=== PATIENT | male | born 1990 | race Two or more races ===

== ENCOUNTER 2019-03-29 17:23 | Emergency (ER) | payer OTHER ==
[~2019-03-29] VITALS: Ht 165.1 cm; Wt 108.0 kg
[2019-03-29 17:39] VITALS: BP 126/71
--- NOTE | 2019-03-29 17:43 | NUR ---
pt to bed 6 with steady gait
--- NOTE | 2019-03-29 18:03 | NUR ---
BIB GIRLFRIEND c/o atypical cp 10/23 x this am with cough x yesterday. drinks socially, denies drug abuse. PATIENT POSITIONED FOR COMFORT; HOB ELEVATED; BEDRAILS UP X1; BED DOWN. ER MD MADE AWARE OF PT STATUS.
[2019-03-29] MEDS ORDERED: KETOROLAC 30 MG/ML VIAL IM ONE (18:25)
--- NOTE | 2019-03-29 19:10 | NUR ---
Pt report given to PRANAY TAYLOR. Transfer of care at this time.
[2019-03-29 19:21] VITALS: BP 126/71
--- NOTE | 2019-03-29 19:21 | NUR ---
PT DISCHARGED WITH PAPERWORK. RX RYAN BARNES. EDUCATED PT REGARDING MEDICATIONS AND S/E. EDUCATED PT REGARDING D/C DIAGNOSIS AND INSTRUCTIONS. PT VERBALIZED UNDERSTANDING OF TEACHING. TOLD PT TO FOLLOW UP WITH PCP AND WHEN TO RETURN TO ED. PT AT STABLE CONDITION. ABLE TO AMBULATE WITH STEADY GAIT. ALL QUESTIONS ANSWERED.
== END 2019-03-29 19:21 | disposition home or self-care (01) ==
LOC: MED 17:23
DX: S46.812A Strain of other muscles, fascia and tendons at shoulder and upper arm level, left arm, initial encounter (principal); S29.011A Strain of muscle and tendon of front wall of thorax, initial encounter; X58.XXXA Exposure to other specified factors, initial encounter; Y92.89 Other specified places as the place of occurrence of the external cause; Y93.89 Activity, other specified; Y99.8 Other external cause status
CPT/HCPCS: 71045; 73030; 93005; 96372; 99283; J1885; Q0092

== ENCOUNTER 2020-08-24 18:21 | Emergency (ER) | payer OTHER ==
[~2020-08-24] VITALS: Ht 165.1 cm; Wt 108.0 kg
[2020-08-24 18:28] VITALS: BP 144/88
--- NOTE | 2020-08-24 18:54 | NUR ---
29/M PRESENTS TO ED WITH C/O 10/10 SHARP BODY PAIN SINCE SUNDAY. PATIENT STATES HE WAS RESTING WHEN THE PAIN BEGAN. PATIENT WAS AT WORK TODAY AND STATED THE PAIN PROGRESSIVELY GOT WORSE, DENIES TAKING MEDICATION FOR PAIN. PATIENT ABLE TO AMBULATE WITHOUT ASSISTANCE BUT STATES ROM HAS BEEN LIMITED DUE TO PAIN.
--- NOTE | 2020-08-24 19:11 | NUR ---
RECIVED REPORT FROM VAUGHN TAYLOR, TRANSFER OF CARE. RECIVED PATIENT A&O X 4. RESPIRATIONS ARE EVEN AND UNLABORED. SKIN IS WARM AND DRY TO TOUCH. PER PATIENT, "I HAD COVID EARLY LAST YEAR AND I DON'T WANT IT AGAIN." PATIENT ZENOBIA AND NOVEL SWAB COLLECTED AND GIVEN TO [employer]IT[employer].
--- NOTE | 2020-08-24 19:20 | NUR ---
XRAY AT BEDSIDE.
[2020-08-24 19:40] LABS: BASOPHILS # (AUTO) 0.1 K/uL (0.00-0.22); BASOPHILS % (AUTO) 0.6 % (0.0-2.0); EOSINOPHILS # (AUTO) 0.4 K/uL (0-0.4); EOSINOPHILS % (AUTO) 3.8 % (0.0-4.0); HEMATOCRIT 40.4 % (36-52); HEMOGLOBIN 13.3 g/dL (12.0-18.0); LYMPHOCYTES # (AUTO) 2.4 K/uL (2.0-11.5); MEAN CORPUSCULAR HEMOGLOBIN 29 pg (27-31); MEAN CORPUSCULAR HGB CONC 33 g/dL (33-37); MEAN CORPUSCULAR VOLUME 87.9 fL (80-94); MONOCYTES # (AUTO) 0.7 K/uL (0.8-1.0); MONOCYTES % (AUTO) 6.5 % (1.7-9.3); NEUTROPHILS # (AUTO) 7.7 K/uL (1.8-7.7); NEUTROPHILS % (AUTO) 68.1 % (42.2-75.2); PLATELET COUNT (AUTO) 273 K/uL (140-450); RED BLOOD CELL COUNT(AUTO) 4.59 MIL/uL (4.20-6.10); RED CELL DISTRIBUTION WIDTH 13.8 % (11.6-13.7); WHITE BLOOD COUNT (AUTO) 11.3 K/uL (4.8-10.8)
[2020-08-24 19:57] LABS: ANION GAP 10.6 (8-16); CARBON DIOXIDE 29.3 mmol/L (21-32); CREATININE 0.9 mg/dL (0.6-1.3); POTASSIUM 3.9 mmol/L (3.5-5.1)
--- NOTE | 2020-08-24 20:20 | NUR ---
PATIENT HAD C/O 10/10 GENERALIZED BODY ACHES. TRUPTI MURILLO MADE AWARE AND GAVE NEW ORDER FOR PO MEDICATION.
[2020-08-24] MEDS ORDERED: ACETAMINOPHEN 325 MG TAB PO ONE (20:25)
--- NOTE | 2020-08-24 21:00 | NUR ---
PATIENT STATES 10/10 GENERALIZED BODY ACHES WENT DOWN TO 2/10 S/P TYLENOL 650MG PO. PATIENT HAD NADR TO MEDICATION.
[2020-08-24 21:12] VITALS: BP 138/78
--- NOTE | 2020-08-24 21:12 | NUR ---
Patient discharged with v/s stable. Written and verbal after care instructions given and explained. Patient verbalized understanding. Ambulatory with steady gait. All questions addressed prior to discharge. Advised to follow up with PMD.
== END 2020-08-24 21:12 | disposition home or self-care (01) ==
LOC: MED 18:21
DX: R07.9 Chest pain, unspecified (principal); Z20.822 Contact with and (suspected) exposure to COVID-19; R42 Dizziness and giddiness; R06.02 Shortness of breath; F41.9 Anxiety disorder, unspecified
CPT/HCPCS: 71045; 80048; 84484; 85025; 87426; 93005; 99285; U0003

== ENCOUNTER 2023-08-27 08:59 | Emergency (ER) | payer OTHER ==
[~2023-08-27] VITALS: Ht 165.1 cm; Wt 119.3 kg
[2023-08-27 09:06] VITALS: BP 133/81; PULSE 95; RESP 18; TEMP 96.7; O2SAT 100
[2023-08-27 11:57] LABS: BASOPHILS % (AUTO) 0.5 % (0.0-2.0); EOSINOPHILS % (AUTO) 0.4 % (0.0-4.0); HEMATOCRIT 40.7 % (36-52); HEMOGLOBIN 13.9 g/dL (12.0-18.0); LYMPHOCYTES # (AUTO) 1.2 K/uL (2.0-11.5); LYMPHOCYTES % (AUTO) 23.1 % (20.5-51.1); MEAN CORPUSCULAR HEMOGLOBIN 30 pg (27-31); MEAN CORPUSCULAR HGB CONC 34 g/dL (33-37); MEAN CORPUSCULAR VOLUME 86.6 fL (80-94); MONOCYTES # (AUTO) 0.4 K/uL (0.8-1.0); MONOCYTES % (AUTO) 8.4 % (1.7-9.3); NEUTROPHILS # (AUTO) 3.6 K/uL (1.8-7.7); NEUTROPHILS % (AUTO) 67.6 % (42.2-75.2); PLATELET COUNT (AUTO) 210 K/uL (140-450); RED CELL DISTRIBUTION WIDTH 14.6 % (11.6-13.7); WHITE BLOOD COUNT (AUTO) 5.3 K/uL (4.8-10.8)
[2023-08-27 12:35] LABS: ANION GAP 13.5 (8-16); CALCIUM 8.7 mg/dL (8.5-10.1); CARBON DIOXIDE 25.2 mmol/L (21-32); POTASSIUM 3.7 mmol/L (3.5-5.1)
[2023-08-27 12:52] LABS: APPEARANCE,URINE CLEAR (CLEAR); BILIRUBIN,URINE NEGATIVE (NEGATIVE); BLOOD, URINE NEGATIVE (NEGATIVE); COLOR,URINE YELLOW (YELLOW); LEUKOCYTE ESTERASE ,URINE NEGATIVE (NEGATIVE); NITRITE, URINE NEGATIVE (NEGATIVE); PROTEIN,URINE NEGATIVE (NEGATIVE); UGLUCOSE NEGATIVE (NEGATIVE); UROBILINOGEN,URINE 0.2 EU/dL (0.2 - 1)
[2023-08-27] MEDS ORDERED: MELO-176 PO (13:02)
[2023-08-27] MEDS ORDERED: CYCL-711 PO (13:02)
[2023-08-27] MEDS: KETOROLAC 60 MG/2 ML VIAL IM ONE (13:15)
[2023-08-27 13:22] LABS: ALBUMIN 3.4 g/dL (3.4-5.0); BILIRUBIN,DIRECT 0.1 mg/dL (0.0-0.3); TOTAL BILIRUBIN 0.5 mg/dL (0.0-1.0); TOTAL PROTEIN, SERUM 7.7 g/dL (6.4-8.2)
== END 2023-08-27 13:46 | disposition home or self-care (01) ==
LOC: MED 08:59
DX: R10.9 Unspecified abdominal pain (principal); M54.50 Low back pain, unspecified; M25.561 Pain in right knee; Z79.899 Other long term (current) drug therapy
CPT/HCPCS: 36415; 73562; 74176; 80048; 80076; 81003; 83690; 85025; 96372; 99285; J1885

== ENCOUNTER 2023-09-05 10:35 | Emergency (ER) | payer OTHER ==
[~2023-09-05] VITALS: Ht 165.1 cm; Wt 119.3 kg
[~2023-09-05 10:35] MED LIST: CYCL-711 PO; MELO-176 PO
[2023-09-05 10:54] VITALS: BP 125/78; PULSE 126; RESP 18; TEMP 98.7; O2SAT 99
[2023-09-05 10:58] VITALS: BP 125/78; PULSE 126; RESP 18; TEMP 98.7
[2023-09-05 11:05] VITALS: O2SAT 99
[2023-09-05] MEDS ORDERED: CETI10SG1 PO (11:30)
[2023-09-05] MEDS ORDERED: PRED50TA2 PO (11:30)
== END 2023-09-05 11:36 | disposition home or self-care (01) ==
LOC: MED 10:35
DX: L51.9 Erythema multiforme, unspecified (principal); Z79.899 Other long term (current) drug therapy
CPT/HCPCS: 99283